=== PATIENT | female | born 1995 | race Two or more races ===

== ENCOUNTER 2024-02-25 18:06 | Emergency (ER) | payer MEDICAID, SELFPAY ==
[2024-02-25 18:08] VITALS: PULSE 120; RESP 18; O2SAT 98
[2024-02-25 18:09] VITALS: BP 130/78; PULSE 101; RESP 17; TEMP 36.6; O2SAT 100
--- NOTE | 2024-02-25 18:14 | PC.NURSE ---
Pt THOMAS, states that she met an individual today around 1500 and offered her mushrooms, which she took 3 of. She then began to feel abnormal and hot. She got worried because it was her first time taking anything like this, so she called 911. Pt does admit to also smoking marijuana. Medic states that the pt was initially tachycardic with HR around 120s when the ambulance picked her up, otherwise vitals WNL. No signs of distress at this time
[2024-02-25 18:45] LABS: Collection Type, Urine Clean Catch
[2024-02-25 18:50] LABS: Basophils # (Auto) 0.1 Thou/mm3 (0.0-0.2); Basophils % (Auto) 1 % (0-2.5); Eosinophils % (Auto) 1 % (0-10); Hematocrit 38.7 % (36.0-46.0); Hemoglobin 13.1 g/dL (12.0-16.0); Immature Granulocytes % (Auto) 0 % (0-0); Immature Granulocytes Auto 0.01 Thou/mm3 (0.00-0.00); Lymphocytes # (Auto) 1.5 Thou/mm3 (1.0-4.8); Lymphocytes % (Auto) 37 % (10-50); Mean Corpuscular HGB Conc 33.9 g/dl (31.0-37.0); Mean Corpuscular Hemoglobin 28.9 pg (25.0-35.0); Mean Corpuscular Volume 85 fL (80-100); Monocytes # (Auto) 0.4 Thou/mm3 (0.0-0.8); Monocytes % (Auto) 9 % (0-12); Neutrophils # (Auto) 2.1 Thou/mm3 (1.8-7.7); Neutrophils % (Auto) 52 % (37-80); Nucleated Red Blood Cell % 0 /100 WBC (0); Platelet Count 329 Thou/mm3 (140-440); RDW Standard Deviation 40.6 fL (36.4-46.3); Red Blood Count 4.54 Miln/mm3 (4.00-5.20)
[2024-02-25 18:54] LABS: Bacteria,Urine Rare; Bilirubin,Urine Negative (Negative); Blood,Urine Negative (Negative); Clarity,Urine Clear (Clear/Hazy); Color,Urine Lt-Yellow (Lt Yel-Yel); Glucose, Urine Negative (Negative); Ketones,Urine Negative (Negative); Leukocyte Esterase,Urine Positive (Negative); Nitrite,Urine Negative (Negative); Protein,Urine Negative (Neg - Trace); RBC,Urine 2 /hpf (0-3); Squamous Epithelial Cell,Urine 2 /hpf (0-5); Urobilinogen,Urine Negative mg/dL (0.0-1.0); WBC,Urine 4 /hpf (0-5)
[2024-02-25 18:58] LABS: HCG Qualitative,Urine Negative
[2024-02-25 19:08] LABS: Alanine Aminotransferase 12 U/L (10-49); Albumin, Serum 4.7 gm/dL (3.5-5.0); Albumin/Globulin Ratio 1.6 (1.2-2.2); Alkaline Phosphatase 63 U/L (46-116); Anion Gap 8 (7-16); Aspartate Amino Transferase 21 U/L (0-34); BUN/Creatinine Ratio 13 Ratio (12-20); Bilirubin,Total 0.2 mg/dL (0.3-1.2); Blood Urea Nitrogen 12 mg/dL (9-23); Calcium 9.8 mg/dL (8.3-10.6); Calcium (Corrected) 9.8 mg/dL (8.5-10.1); Carbon Dioxide 27.9 mMol/L (20.0-31.0); Chloride 104 mMol/L (98-107); Creatinine (Component) 0.9 mg/dL (0.6-1.3); Globulin 2.9 gm/dL (2.3-3.5); Glucose 97 mg/dL (74-106); Osmolality,Calculated 279 (275-295); Potassium 3.4 mMol/L (3.4-5.1); Sodium 140 mMol/L (136-145); Total Protein 7.6 gm/dL (5.7-8.2); eGFR > 60 See Note
[2024-02-25 19:16] LABS: Amphetamine/Methamp Scrn,U Positive (Negative); Barbiturate Screen,Urine Negative (Negative); Benzodiazepines Screen,Urine Negative (Negative); Benzoylecgonine Screen, Ur Negative (Negative); Fentanyl Screen,Urine Negative (Negative); Opiate Screen,Urine Negative (Negative); THC Screen,Urine Positive (Negative)
[2024-02-25 19:18] VITALS: BP 129/88; PULSE 103; RESP 18; O2SAT 99
--- NOTE | 2024-02-25 19:32 | PD.EDADULT ---
ED General RME/HPI General Chief complaint: Overdose Stated complaint: OVERDOSE Time Seen by Provider: 02/25/24 18:13 Arrival date/time: 02/25/24 18:06 CC: Altered behavior HPI patient presents the ER via EMS who reports stable vital signs of the patient was offered mushrooms , and took them by somebody at was walking by her. States afterwards she plan to feel different . Patient denies other street drugs but admits to drinking alcohol. Patient has no pain. Is awake alert oriented x 3 Glascow coma 15 no focal deficits. Related Data Home Medications ?Medication ?Instructions ?Recorded ?Confirmed multivitamin no.51-ferrous 1 cap PO DAILY 03/16/21 04/27/21 fumarate 106.5 mg-folic acid 1 mg capsule (-U) Previous Rx's ?Medication ?Instructions ?Recorded docusate sodium 100 mg capsule 100 mg PO BID #60 caps 04/27/21 (Colace) ibuprofen 600 mg tablet 600 mg PO Q6H PRN pain #90 tabs 04/27/21 lanolin 50 % topical ointment 1 applic topical TID PRN skin 04/27/21 irritation #15 tubes Allergies Allergy/AdvReac Type Severity Reaction Status Date / Time No Known Allergies Allergy Verified 12/26/22 05:25 Review of Systems Review of Systems Narrative Review of Systems: GEN: No fever, no chills, no weight loss EYES: No discharge, no visual changes, no pain HEENT: No ear pain, no congestion, no sore throat PULM: No shortness of breath, no cough, no congestion CV: No chest pain, no dyspnea on exertion, no palpitations GI: No nausea, no vomiting, no diarrhea, no pain, no constipation : No frequency, no urgency, no dysuria MUSC/SKEL: No joint pain, no back pain SKIN: No rash PSYCH: No hallucinations, no depression HEME/LYMPH: No easy bleeding or bruising tendencies NEURO: No weakness, no headache Past Medical History Past Medical History NEUROLOGIC: Negative Neurological Disorders or Seizures CARDIAC: Negative Cardiac Disorders or Congestive Heart Failure RESPIRATORY: Negative Chronic Obstructive Pulmonary Disease (COPD) or Asthma GASTROINTESTINAL: Negative Gastrointestinal Disorders (umbilical hernia at age 4), Hepatitis, Gall Bladder Disease, Colorectal Cancer or Gastroesophageal Reflux Disease GENITOURINARY: Negative Genitourinary Disorders, Renal Disease or Prostate Cancer REPRODUCTIVE: Positive Previous Pregnancies; Negative Breast Cancer or Testicular Cancer MUSCULOSKELETAL: Negative Musculoskeletal Disorders or Bone Cancer ENDOCRINE: Negative Endocrine Disorders, Diabetes Mellitus Type 1 or Diabetes Mellitus Type 2 HEMATOLOGIC: Negative Blood Disorders, Anemia or Sickle Cell Disease PSYCHO/SOCIAL: Negative Depression or Anxiety OTHER HISTORY: Positive Hospitalization and Anesthesia Reactions; Negative Autoimmune Disease, Down Syndrome, Developmental Delay, Shingles, Falls, Blood Transfusions, MRSA, Human Immunodeficiency Virus (HIV), Chicken Pox, Measles, Mumps, Rubella ([place] Measles), Pertussis, Clostridium Difficile, Cancer, Breast Cancer, Cervical Cancer, Colorectal Cancer, Lung Cancer, Ovarian Cancer, Prostate Cancer or Testicular Cancer Family History FAMILY HISTORY: Negative Family Psychiatric Problems, Family Respiratory Disorders, Family Cardiac Disorders, Family Gastrointestinal Problems, Family Cancer, Family Surgery or Family Anesthesia Reaction Surgical History SURGICAL: Negative Section Social History SMOKING STATUS: Never smoker SECOND HAND EXPOSURE: No ED Exam Narrative Physical exam: [General: Not in any acute distress Head normocephalic HEENT: Within acceptable limits Neck is supple nontender Chest equal chest rise nontender to palpation Respiratory: Clear to auscultation no wheezes crackles or rubs CV: Rate rhythm is regular no murmurs rubs or clicks Abdomen is soft nontender no masses positive bowel sounds all 4 quadrants Back: No CVA tenderness no spinous process tenderness from cervical spine thoracic and lumbar spine Skin: Intact no petechiae rash induration ulceration or crepitus Extremities: Moving all extremity against resistance cap refill less than 2 seconds neurosensory intact Neuro: Awake alert oriented x3 Glascow coma 15 no focal deficits] Course Quality Measures none Orders Category Date Time Status Saline [Insert IV] NOW Care 02/25/24 18:14 Active CBC Stat Lab 02/25/24 18:36 Completed CMP [Comprehensive Metabolic Panel] Stat Lab 02/25/24 18:36 Completed Drug Screen,Urine Stat Lab 02/25/24 18:20 Completed HCG Qualitative,Urine Stat Lab 02/25/24 18:20 Completed Urinalysis Stat Lab 02/25/24 18:20 Completed Vital Signs Vital signs: Vital Signs Temperature 97.9 F 02/25/24 18:09 Pulse Rate 101 H 02/25/24 18:09 Respiratory Rate 17 02/25/24 18:09 Blood Pressure 130/78 02/25/24 18:09 Pulse Oximetry (%) 100 02/25/24 18:09 Oxygen Delivery Method Room Air 02/25/24 18:09 MDM Patient data External records reviewed:: [facility] previous records and EMS form Clinical information provided by:: patient and EMS Social determinants that could affect healthcare access:: none Patient has the following chronic illnesses:: None How is presenting disease/condition affected by chronic disease/condition?: uneffected by Evaluation data The following diagnostics were reviewed and interpreted by me:: lab results Lab and/or radiology exams considered but not ordered:: CBC shows no acute leukocytosis anemia thrombocytopenia CMP shows no acute electrolyte imbalances renal impairment transaminitis or T. bili elevation UDS is positive for methamphetamines Urine is negative for urinary tract infection is negative. Interpretation Summary: Methamphetamines positive Medications Medications considered but not ordered:: None Medication administrations:: None Consultations Consultation(s) initiated? (list below): No Diagnosis Differential Diagnosis ED Complaint MDM: Polysubstance abuse methamphetamine mushroom stimulant Most likely diagnosis given after review of the tests above:: Methamphetamine abuse Admission Indicated Admission indicated?: not indicated Explain why admission is indicated or not indicated:: Stable for discharge Admission Request Was there a request for admission?: No Disposition Plan Disposition Plan: Discharge Discharge Attestation Discharge Attestation: The patient and all family members were given an opportunity to ask questions and understood the discharge instructions. Discharge instructions specifically effects, indications for sooner follow up or return to the emergency department, and the expected course of current diagnosis. Patient condition: Stable Medical Decision Making Differential Diagnosis Differential Diagnosis: Polysubstance abuse methamphetamine mushroom stimulant Lab Data 02/25/24 18:36 02/25/24 18:36 Labs: Lab Results 02/25/24 02/25/24 Range/Units 18:20 18:36 WBC 4.0 (3.6-11.0) Thou/mm3 RBC 4.54 (4.00-5.20) Miln/mm3 Hgb 13.1 (12.0-16.0) g/dL Hct 38.7 (36.0-46.0) % MCV 85 (80-100) fL MCH 28.9 (25.0-35.0) pg MCHC 33.9 (31.0-37.0) g/dl RDW Std Deviation 40.6 (36.4-46.3) fL Plt Count 329 (140-440) Thou/mm3 Neut % (Auto) 52 (37-80) % Lymph % (Auto) 37 (10-50) % [place] % (Auto) 9 (0-12) % Eos % (Auto) 1 (0-10) % Baso % (Auto) 1 (0-2.5) % Neut # (Auto) 2.1 (1.8-7.7) Thou/mm3 Lymph # (Auto) 1.5 (1.0-4.8) Thou/mm3 [place] # (Auto) 0.4 (0.0-0.8) Thou/mm3 Eos # (Auto) 0.0 (0.0-0.5) Thou/mm3 Baso # (Auto) 0.1 (0.0-0.2) Thou/mm3 Immature Gran # (Auto) 0.01 H (0.00-0.00) Thou/mm3 Absolute Nucleated RBC 0.00 (0.00-0.00) Thou/mm3 Immature Gran % 0 (0-0) % Nucleated RBC % 0 (0) /100 WBC Sodium 140 (136-145) mMol/L Potassium 3.4 (3.4-5.1) mMol/L Chloride 104 (98-107) mMol/L Carbon Dioxide 27.9 (20.0-31.0) mMol/L Anion Gap 8 (7-16) BUN 12 (9-23) mg/dL Creatinine 0.9 (0.6-1.3) mg/dL Estim Creat Clear Calc 83.0 (>60) mL/min eGFR > 60 (60 - ) See Note BUN/Creatinine Ratio 13 (12-20) Ratio Glucose 97 (74-106) mg/dL Calculated Osmolality 279 (275-295) Calcium 9.8 (8.3-10.6) mg/dL Corrected Calcium 9.8 (8.5-10.1) mg/dL Total Bilirubin 0.2 L (0.3-1.2) mg/dL AST 21 (0-34) U/L ALT 12 (10-49) U/L Alkaline Phosphatase 63 (46-116) U/L Total Protein 7.6 (5.7-8.2) gm/dL Albumin 4.7 (3.5-5.0) gm/dL Globulin 2.9 (2.3-3.5) gm/dL Albumin/Globulin Ratio 1.6 (1.2-2.2) Ur Collection Type Clean Catch Urine Color Lt-Yellow (Lt Yel-Yel) Urine Clarity Clear (Clear/Hazy) Urine pH 6.0 (5.0-7.0) Ur Specific [place] 1.020 (1.001-1.035) Urine Protein Negative (Neg - Trace) Urine Glucose (UA) Negative (Negative) Urine Ketones Negative (Negative) Urine Blood Negative (Negative) Urine Nitrite Negative (Negative) Urine Bilirubin Negative (Negative) Urine Urobilinogen (Auto) Negative (0.0-1.0) mg/dL Ur Leukocyte Esterase Positive (Negative) Urine RBC 2 (0-3) /hpf Urine WBC 4 (0-5) /hpf Ur Squamous Epith Cells 2 (0-5) /hpf Urine Bacteria Rare (None) Urine HCG, Qual Negative Urine Opiates Screen Negative (Negative) Urine Fentanyl Screen Negative (Negative) Ur Barbiturates Screen Negative (Negative) U Amphetamin/Meth Scrn Positive A (Negative) U Benzodiazepines Scrn Negative (Negative) U Cocaine Metab Screen Negative (Negative) U Marijuana (THC) Screen Positive A (Negative) Discharge Plan Plan Patient Disposition: HOME (Self Care) Patient condition on transfer: Stable Prescriptions/Referrals Prescriptions/Med Rec: No Action -U 106.5-1 mg capsule 1 cap PO DAILY docusate sodium [Colace] 100 mg capsule 100 mg PO BID Qty: 60 0RF ibuprofen 600 mg tablet 600 mg PO Q6H PRN (Reason: pain) Qty: 90 0RF lanolin 50 % ointment 1 applic topical TID PRN (Reason: skin irritation) Qty: 15 0RF Referrals: Fallon Mayer NP [Primary Care Provider] - In 1 week Problem List Clinical Impression: Methamphetamine abuse Patient/Caregiver Discharge Instructions Education Materials: ED Drug Abuse, Understanding Methamphetamine ... Print Language: Wolof Stand Alone Forms: Bettye Award Info., Patient Portal Info Letter, Work/School Release PA/PAYROLL AND BENEFITS COORDINATOR Supervising Physician PA/PAYROLL AND BENEFITS COORDINATOR Supervising Physician: Dm Campbell ENP
== END 2024-02-25 19:46 | disposition home or self-care (01) ==
PROVIDERS: Registered Nurse General Practice; Emergency Provider Emergency Medicine; PCP Nurse Practitioner Family
DX: F15.10 Other stimulant abuse, uncomplicated (principal)
CPT/HCPCS: 36415; 80053; 80307; 81001; 81025; 85025; 96127; 99283

== ENCOUNTER 2024-08-30 00:56 | Emergency (ER) | payer MEDICAID, SELFPAY ==
[2024-08-30 00:57] VITALS: BMI 25.0
[2024-08-30 01:05] VITALS: BP 119/84; PULSE 93; RESP 16; TEMP 36.8; O2SAT 100
--- NOTE | 2024-08-30 01:10 | EDNOTE_ITS ---
ED Abdominal Pain RME/HPI General Chief Complaint: Abdominal Pain Stated complaint: ABDOMINAL PAIN WITH DIARRHEA Time seen by provider: 08/30/24 01:11 Arrival date/time: 08/30/24 00:56 RME / HPI RME / HPI narrative: This section includes all my notes and documentations, including HPI, PE, and ED course. Sage Crooks MD HPI: 29yo female here with lower abdominal pain for the last 1 week. No vomiting, fever, chills, UTI symptoms. No previous abdominal surgeries. Denies being . She is not on any medications. No other complaints reported. ROS: All negative except as documented in HPI. Physical Exam: General: Alert and oriented. No acute distress when remaining still. Eyes: Conjunctivae and lids clear. ENT: No nasal congestion. Neck: Supple. Heart: RRR. Lungs: No respiratory distress. Good air movement. No rhonchi, wheezing, rales. Abdomen: Soft with equivocal diffuse tenderness, difficult to localize. Normal bowel sounds. No distension. No rebound or guarding. Back: No CVA tenderness. Skin: Warm and dry. Neuro: Alert and oriented X 3. I reviewed all diagnostic test results. My review of the US gallbladder report is NAD. My review of the CT abdomen pelvis report is NAD. Blood tests are unremarkable. UA unremarkable. UDS positive for methamphetamine. At this point, diagnoses include gastritis and methamphetamine intoxication. Recommended outpatient management. Based on my best medical judgment, made decision no further evaluation or treatment indicated at this time. Patient understands and agrees to the discharge instructions customized and printed, see below. Discharge instructions from Dr. Crooks: ?After evaluation, your symptoms are due to gastritis (see attached handout) and methamphetamine intoxication. ?To help heal the ulcer, take Omeprazole 40 mg every morning and Famotidine 40 mg at bedtime for a week then as needed. ?Zofran for nausea/vomiting. Clear liquid diet for 24 hours. Then slowly advance diet as tolerated. ?Avoid food and beverages that can trigger and worsen ulcers. See attached handout. --Avoid all drugs to prevent severe injuries and illnesses. ?See a private doctor on 09/02/2024 for recheck and further care. Ask to review all test results and official radiology reports, to make sure you receive all necessary follow-ups and monitoring. To make sure there is no serious intra-abdominal condition, ask for help with m ore investigation not available here in the ER. Such as EGD or scoping the stomach, colonoscopy or scoping the colon, and referral to see planning specialist. Ask for help to quit all drugs. ?Seek immediate medical care with worsening or with any concerns. Sage Crooks MD Related Data Home Medications ?Medication ?Instructions ?Recorded ?Confirmed multivitamin no.51-ferrous 1 cap PO DAILY 03/16/2103/20 fumarate 106.5 mg-folic acid 1 mg capsule (-U) Previous Rx's ?Medication ?Instructions ?Recorded docusate sodium 100 mg capsule 100 mg PO BID #60 caps 04/27/21 (Colace) ibuprofen 600 mg tablet 600 mg PO Q6H PRN pain #90 t abs 04/27/21 lanolin 50 % topical ointment 1 applic topical TID PRN skin 04/27/21 irritation #15 tubes famotidine 40 mg tablet 40 mg PO .bedtime #30 tabs 0 08/30/24 omeprazole 40 mg capsule,delayed 40 mg PO QDAY #30 cap s 08/30/24 release ondansetron 4 mg disintegrating 4 mg PO TID PRN nausea and 08/30/24 tablet vomiting 30 days #10 tabs Allergies Allergy/AdvReac Type Severity Reaction Status Date / Time No Known Allergies Allergy Verified 12/26/22 05:25 Review of Systems Review of Systems Systems Reviewed: All systems reviewed, normal except as documented Past Medical History Past Medical History NEUROLOGIC: Negative Neurological Disorders or Seizures CARDIAC: Negative Cardiac Disorders or Congestive Heart Failure RESPIRATORY: Negative Chronic Obstructive Pulmonary Disease (COPD) or Asthma GASTROINTESTINAL: Negative Gastrointestinal Disorders (umbilical hernia at age 4), Hepatitis, Gall Bladder Disease, Colorectal Cancer or Gastroesophageal Reflux Disease GENITOURINARY: Negative Genitourinary Disorders, Renal Disease or Prostate Cance r REPRODUCTIVE: Positive Previous Pregnancies; Negative Breast Cancer or Testicular Cancer MUSCULOSKELETAL: Negative Musculoskeletal Disorders or Bone Cancer ENDOCRINE: Negative Endocrine Disorders, Diabetes Mellitus Type 1 or Diabetes Mellitus Type 2 HEMATOLOGIC: Negative Blood Disorders, Anemia or Sickle Cell Disease PSYCHO/SOCIAL: Negative Depression or Anxiety OTHER HISTORY: Positive Hospitalization and Anesthesia Reactions; Negative Autoimmune Disease, Down Syndrome, Developmental Delay, Shingles, Falls, Blood Transfusions, MRSA, Human Immunodeficiency Virus (HIV), Chicken Pox, Measles, Mumps, Rubella ([place] Measles), Pertussis, Clostridium Difficile, Cancer, Breast Cancer, Cervical Cancer, Colorectal Cancer, Lung Cancer, Ovarian Cancer, Prostate Cancer or Testicular Cancer Family History FAMILY HISTORY: Negative Family Psychiatric Problems, Family Respiratory Disorders, Family Cardiac Disorders, Family Gastrointestinal Problems, Family Cancer, Family Surgery or Family Anesthesia Reaction Surgical History SURGICAL: Negative Section Social History SMOKING STATUS: Never smoker SECOND HAND EXPOSURE: No ED Exam Narrative Physical exam: As noted in HPI. Course Quality Measures none Orders Category Date Time Status CT abdomen pelvis wo con Stat Exams 08/30/24 01:13 Taken US gall bladder Stat Exams 08/30/24 01:13 Taken Alcohol, Blood Medical Stat Lab 08/30/24 01:24 Completed Amylase Stat Lab 08/30/24 01:24 Completed Bilirubin,Direct Stat Lab 08/30/24 01:24 Completed CBC Stat Lab 08/30/24 01:24 Completed CMP [Comprehensive Metabolic Panel] Stat Lab 08/30/24 01:24 Completed Drug Screen,Urine Stat Lab 08/30/24 02:42 Completed HCG,Qualitative Serum Stat Lab 08/30/24 01:24 Completed Lipase Stat Lab 08/30/24 01:24 Completed Magnesium Stat Lab 08/30/24 01:24 Completed UA, C/S IF [Urinalysis, C/S if Indicated] Stat Lab 08/30/24 02:42 Completed Urine Culture Stat Lab 08/30/24 02:42 Received Vital Signs Vital signs: Vital Signs Temperature 98.3 F 08/30/24 01:05 Pulse Rate 93 08/30/24 01:05 Respiratory Rate 16 08/30/24 01:05 Blood Pressure 119/84 08/30/24 01:05 Pulse Oximetry (%) 100 08/30/24 01:05 Oxygen Delivery Method Room Air 08/30/24 01:05 Abdominal Pain MDM MDM Narrative MDM Narrative:: 29yo female with no significant past medical history presents to the ED for a chief complaint of lower abdominal pain for the last 1 week. Patient has associated diarrhea and dizziness. No N/V, fever, chills, UTI symptoms or any other associated symptoms. No previous abdominal surgeries. Denies being . She is not on any medications. No other complaints reported. Patient data External records reviewed:: [facility] previous records (Per chart review, patient was seen here on 02/25/24 for methamphetamine abuse.) Clinical information provided by:: patient Social determinants that could affect healthcare access:: substance use (history of methamphetamine abuse) Patient has the following chronic illnesses:: none How is presenting disease/condition affected by chronic disease/condition?: no chronic disease Evaluation data The following diagnostics were reviewed and interpreted by me:: lab results and radiology exam(s) Lab and/or radiology exams considered but not ordered:: none Interpretation Summary: I reviewed all diagnostic test results. My review of the US gallbladder report is NAD. My review of the CT abdomen pelvis report is NAD. Blood tests are unremarkable. UA unremarkable. UDS positive for methamphetamine. Medications / Prescriptions Medications or Prescriptions considered but not ordered:: none Medication administrations:: none Consultations Consultation(s) initiated? (list below): No Diagnosis Differential diagnosis abdominal pain: acute appendicitis, calculus of kidney, constipation, diverticulitis, endometriosis, gastroenteritis, pancreatitis, small bowel obstruction and other (Biliary colic, PUD, gastritis, GERD, UTI, py elonephritis) Most likely diagnosis given after review of the tests above:: Gastritis, Methamphetamine intoxication Admission Indicated Admission indicated?: not indicated Explain why admission is indicated or not indicated:: With no condition needing emergent intervention, there was no indication for admission. Admission Request Was there a request for admission?: No Disposition Plan Disposition Plan: Discharge Discharge Attestation Discharge Attestation: The patient and all family members were given an opportunity to ask questions and understood the discharge instructions. Discharge instructions specifically effects, indications for sooner follow up or return to the emergency department, and the expected course of current diagnosis. Patient condition: Stable Discharge Plan Plan Patient Disposition: HOME (Self Care) Prescriptions/Referrals Prescriptions/Med Rec: New famotidine 40 mg tablet 40 mg PO .bedtime Qty: 30 0RF omeprazole 40 mg capsule,delayed release(DR/EC) 40 mg PO QDAY Qty: 30 0RF ondansetron 4 mg tablet,disintegrating 4 mg PO TID PRN (Reason: nausea and vomiting) 30 Days Qty: 10 0RF No Action -U 106.5-1 mg capsule 1 cap PO DAILY docusate sodium [Colace] 100 mg capsule 100 mg PO BID Qty: 60 0RF ibuprofen 600 mg tablet 600 mg PO Q6H PRN (Reason: pain) Qty: 90 0RF lanolin 50 % ointment 1 applic topical TID PRN (Reason: skin irritation) Qty: 15 0RF Referrals: Jonathan Alaniz MD [Primary Care Provider] - In 1 week Problem List Clinical Impression: Gastritis, Methamphetamine intoxication Patient/Caregiver Discharge Instructions Discharge Activity: activity as tolerated Education Materials: ED Drug Abuse, ED Gastritis (Adult) Additional Instructions: Discharge instructions from Dr. Crooks: ?After evaluation, your symptoms are due to gastritis (see attached handout) and methamphetamine intoxication. ?To help heal the ulcer, take Omeprazole 40 mg every morning and Famotidine 40 mg at bedtime for a week then as needed. ?Zofran for nausea/vomiting.? Clear liquid diet for 24 hours.? Then slowly advance diet as tolerated. ?Avoid food and beverages that can trigger and worsen ulcers.? See attached handout. --Avoid all drugs to prevent severe injuries and illnesses. ?See a private doctor on 09/02/2024 for recheck and further care. Ask to review all test results and official radiology reports, to make sure you receive all necessary follow-ups and monitoring. To make sure there is no serious intra-abdominal condition, ask for help with more investigation not available here in the ER.? Such as EGD or scoping the stomach, colonoscopy or scoping the colon, and referral to see planning specialist. Ask for help to quit all drugs. ?Seek immediate medical care with worsening or with any concerns. Print Language: Pashto Stand Alone Forms: Bettye Award Info., Patient Portal Info Letter
--- NOTE | 2024-08-30 01:13 | XR_ITS ---
Examination: CT abdomen and pelvis without contrast. Coronal 3-D reconstructions. Sagittal 2-D reconstructions. Date and time of exam:August 30, 2024 0220 hours INDICATIONS: Mid abdominal pain today CTDI: vol (mGy): 6 DLP: (mGycm): 342. Technique: Axial images of the abdomen have been obtained, 3 mm slice thickness Intravenous contrast material has not been administered. Low dose protocols were performed. One or more of the following dose reduction techniques were used; automated exposure control, adjustment of the mA and/or KV according to patient size, use of iterative reconstruction technique. Findings: No focal liver or splenic lesions No gallstones No pancreatic or adrenal mass No renal or ureteral calculi, no hydronephrosis. Aorta normal size Normal appendix. No diverticulitis Anteverted uterus Urinary bladder intact The osseous structures are intact Impression : No renal or ureteral calculi, no hydronephrosis Normal appendix No bowel obstruction diverticulitis or free air
--- NOTE | 2024-08-30 01:13 | XR_ITS ---
Examination: Abdomen sonogram, Limited Date and time of exam: August 30, 2024, 0253 hours INDICATIONS: Right upper abdominal pain and nausea beginning one week ago. Technique: Real-time dobson scale transabdominal sonographic images of the upper abdomen obtained. Findings: Normal gallbladder Normal common bile duct 0.27 cm Pancreas obscured by bowel gas. Liver 10.6 cm no liver lesions Normal hepatopedal portal venous and Patent IVC IMPRESSION: Normal gallbladder Normal common bile duct
[2024-08-30 01:34] LABS: Basophils # (Auto) 0.0 Thou/mm3 (0.0-0.2); Basophils % (Auto) 1 % (0-2.5); Eosinophils # (Auto) 0.1 Thou/mm3 (0.0-0.5); Eosinophils % (Auto) 1 % (0-10); Hematocrit 34.4 % (36.0-46.0); Hemoglobin 11.7 g/dL (12.0-16.0); Immature Granulocytes Auto 0.02 Thou/mm3 (0.00-0.00); Lymphocytes # (Auto) 2.0 Thou/mm3 (1.0-4.8); Lymphocytes % (Auto) 33 % (10-50); Mean Corpuscular HGB Conc 34.0 g/dl (31.0-37.0); Mean Corpuscular Hemoglobin 28.5 pg (25.0-35.0); Mean Corpuscular Volume 84 fL (80-100); Monocytes # (Auto) 0.4 Thou/mm3 (0.0-0.8); Monocytes % (Auto) 6 % (0-12); Neutrophils # (Auto) 3.7 Thou/mm3 (1.8-7.7); Neutrophils % (Auto) 60 % (37-80); Nucleated Red Blood Cell # 0.00 Thou/mm3 (0.00-0.00); Nucleated Red Blood Cell % 0 /100 WBC (0); Platelet Count 342 Thou/mm3 (140-440); RDW Standard Deviation 43.2 fL (36.4-46.3); Red Blood Count 4.10 Miln/mm3 (4.00-5.20); White Blood Count 6.2 Thou/mm3 (3.6-11.0)
[2024-08-30 01:50] LABS: HCG,Qualitative Serum Negative
[2024-08-30 02:03] LABS: Alanine Aminotransferase 10 U/L (10-49); Albumin, Serum 4.6 gm/dL (3.5-5.0); Albumin/Globulin Ratio 1.7 (1.2-2.2); Alcohol, Blood Medical < 3.0 mg/dL (0-10.0); Alkaline Phosphatase 57 U/L (46-116); Amylase 42 U/L (30-118); Anion Gap 9 (7-16); Aspartate Amino Transferase 20 U/L (0-34); BUN/Creatinine Ratio 11 Ratio (12-20); Bilirubin,Direct 0.1 mg/dL (0.0-0.3); Bilirubin,Total 0.5 mg/dL (0.3-1.2); Blood Urea Nitrogen 11 mg/dL (9-23); Calcium 9.1 mg/dL (8.3-10.6); Calcium (Corrected) 9.1 mg/dL (8.5-10.1); Carbon Dioxide 25.4 mMol/L (20.0-31.0); Chloride 107 mMol/L (98-107); Creatinine (Component) 1.0 mg/dL (0.6-1.3); Estimated Creatinine Clearance 80.0 mL/min (>60); Globulin 2.7 gm/dL (2.3-3.5); Glucose 115 mg/dL (74-106); Lipase 35 U/L (12-53); Magnesium 2.0 mg/dL (1.6-2.6); Osmolality,Calculated 281 (275-295); Potassium 3.6 mMol/L (3.4-5.1); Sodium 141 mMol/L (136-145); Total Protein 7.3 gm/dL (5.7-8.2); eGFR > 60 See Note
[2024-08-30 03:01] LABS: Collection Type, Urine Clean Catch
--- NOTE | 2024-08-30 03:12 | PRELIM_ITS ---
CT scan of the abdomen and pelvis without intravenous contrast (axial sections with sagittal and coronal reformats) August 30, 2024 0220 hours Clinical History: ABD PAIN No prior study is available for comparison. Findings: The lung bases are clear. The liver, gallbladder, pancreas, spleen, kidneys and adrenals are unremarkable on this noncontrast study. No evidence of bowel obstruction. The appendix is within normal limits (coronal images [id number]). There is no mesenteric or retroperitoneal adenopathy. The urinary bladder is unremarkable. The uterus and adnexa are unremarkable. There is no free fluid or free air. The osseous structures are unremarkable. Impression: No evidence of bowel obstruction, free air or fluid collection. Report Electronically Signed By: Naresh Mann 08/30/2024 3:12:03 AM [EST]
[2024-08-30 03:19] LABS: Bilirubin,Urine Negative (Negative); Blood,Urine Negative (Negative); Clarity,Urine Clear (Clear/Hazy); Color,Urine Lt-Yellow (Lt Yel-Yel); Glucose, Urine Negative (Negative); Ketones,Urine Negative (Negative); Leukocyte Esterase,Urine Positive (Negative); Nitrite,Urine Negative (Negative); PH,Urine 6.0 (5.0-7.0); Protein,Urine Negative (Neg - Trace); RBC,Urine 4 /hpf (0-3); Specific Gravity,Urine 1.028 (1.001-1.035); Squamous Epithelial Cell,Urine 7 /hpf (0-5); Urobilinogen,Urine Negative mg/dL (0.0-1.0); WBC,Urine 14 /hpf (0-5)
[2024-08-30 03:28] LABS: Amphetamine/Methamp Scrn,U Positive (Negative); Barbiturate Screen,Urine Negative (Negative); Benzodiazepines Screen,Urine Negative (Negative); Benzoylecgonine Screen, Ur Negative (Negative); Culture Indicated,Urine Yes; Fentanyl Screen,Urine Negative (Negative); Opiate Screen,Urine Negative (Negative); THC Screen,Urine Negative (Negative)
--- NOTE | 2024-08-30 04:09 | PRELIM_ITS ---
Right upper quadrant abdominal ultrasound with Doppler and wave Doppler spectral analysis. August 30, 2024 at 0253 hours Clinical history: Right upper quadrant tenderness. Technique: Grayscale and color flow images of the right upper quadrant are provided. Hepatic and portal veins were also imaged with color flow images. Correlation: Correlated with the prior CT study dated August 30, 2024. Findings: The liver is normal in echogenicity. No intrahepatic biliary ductal dilatation. No gallbladder calculus, wall thickening or pericholecystic fluid is demonstrated. The common bile duct is normal in caliber at 2.7 mm. The pancreas was not visualized. The imaged portions of the right kidney were within normal limits. The portal vein is patent with hepatopetal flow and normal with Doppler spectral analysis. The inferior vena cava is patent with normal with Doppler spectral analysis. Impression: 1. Unremarkable right upper quadrant ultrasound examination. 2. No evidence of cholecystitis. Report Electronically Signed By: Dimitri Lagos 08/30/2024 4:08:31 AM [EST]
--- NOTE | 2024-09-05 16:55 | PC.NURSE ---
Spoke with patient in regard to her urine culture results. Patient informed of new prescription sent to pharmacy. Patient verbalized understanding and stated she will roller picker medication today.
== END 2024-08-30 03:46 | disposition home or self-care (01) ==
PROVIDERS: Emergency Provider Emergency Medicine; PCP Student in an Organized Health Care Education/Training Program
DX: K29.70 Gastritis, unspecified, without bleeding (principal); F15.129 Other stimulant abuse with intoxication, unspecified; R10.30 Lower abdominal pain, unspecified
CPT/HCPCS: 36415; 74176; 76705; 80053; 80307; 80320; 81001; 81025; 82150; 82248; 83690; 83735; 84703; 85025; 87077; 87086; 87186; 99284; G0480